=== PATIENT | male | born 1960 | race Caucasian/White ===

== ENCOUNTER 2016-12-01 11:10 | Inpatient (IN) | payer MEDICAID ==
--- NOTE | 2016-11-27 15:31 | GHP ---
[f rep st] HISTORY AND PHYSICAL DATE OF ADMISSION: 12/01/2016 History and physical for upcoming surgery on 12/01/2016, December 01, 2016. HISTORY OF PRESENT ILLNESS: The patient returns to our office to discuss his painful ventral mass, l ikely hernia. The patient has had a complicated course this year. In July, he underwent an ope n recurrent umbilical hernia repair and had a postop complication of peritonitis and underwent furthe r surgery. He was found to have an intraabdominal abscess and underwent further laparotomy. In September 2016, he underwent wound debridement and split-thickness graft placement. Since that time , the patient has had an enlarging painful mass over his incision, believed to be a ventral hernia/in cisional hernia. PAST MEDICAL HISTORY: Recent laparotomy, peritonitis, acute renal failure and acute respiratory fail ure during his recent hospital course stay, sepsis, history of COPD/emphysema, reflux, anxiety. PAST SURGICAL HISTORY: Recent laparotomy, skin graft placement, cholecystectomy, right lower lobe lo bectomy, knee surgery. ALLERGIES: Sulfa. SOCIAL HISTORY: Former smoker, lives with his brother, no alcohol use. REVIEW OF SYSTEMS: He had a negative 10-point review of systems. PHYSICAL EXAM: GENERAL: The patient is a pleasant male in no apparent distress. HEAD AND NECK: No rmocephalic, atraumatic. CHEST: CTA bilaterally. HEART: Regular rate. ABDOMEN: There is a midli ne incision with some mild erythema consistent with his graft site. There is a mildly tender palpabl e mass consistent with hernia, just left of midline. EXTREMITIES: No lower extremity edema. IMPRESSION: A 56-year-old male with ventral/incisional hernia, status post complicated hospital cour se stay, which included small bowel perforation, peritonitis, respiratory failure. RECOMMENDATION: After a long discussion of the risks, especially given the recent infections and hos pital course stay, the patient would like to proceed with scheduling surgery for ventral hernia repai r. Risks, including, infection, risk of open abdomen, poor healing, pain were all discussed with the patient in detail. The patient elects to proceed with scheduling for December 01, 2016. /[id number]/MODL
[~2016-12-01 11:10] MED LIST: BUPIVACAINE 0.5% 30 ML SDV ONE
[2016-12-01] MEDS ORDERED: ceFAZolin 2 GM/DEXTROSE 100 ML IV ONE (13:30)
[2016-12-01 14:15] LABS: % IMMATURE GRANULYOCYTES 0.4 % (0.0-1.1); ABSOLUTE IMMATURE GRANULOCYTES 0.03 10^3/uL (0.00-0.10); ADD DIFF? NO; ADD MORPH? NO; ADD SCAN? NO; ATYPICAL LYMPHOCYTE FLAG 10 (0-99); FRAGMENT RBC FLAG 0 (0-99); HEMATOCRIT 52.9 % (40.0-51.0); HEMOGLOBIN 18.2 g/dL (13.7-17.5); LEFT SHIFT FLG 0 (0-99); LIPEMIA HEMOLYSIS FLAG 90 (0-99); MEAN CELL HEMOGLOBIN 26.9 pg (27.9-34.1); MEAN CELL HEMOGLOBIN CONCENTR. 34.4 g/dL (32.4-36.7); MEAN CELL VOLUME 78.3 fL (81.5-99.8); PLATELET CLUMPS FLAG 10 (0-99); PLATELET COUNT 264 10^3/uL (150-400); RED BLOOD CELL COUNT 6.76 10^6/uL (4.40-6.38); RED CELL DISTRIBUTION WIDTH 15.9 % (11.5-15.2)
--- NOTE | 2016-12-01 14:21 | CPEKG ---
Heart Rate: 74 RR Interval: 811 P-R Interval: 180 QRSD Interval: 70 QT Interval: 384 QTC Interval: 426 P [place]: 10 QRS [place]: -33 T Wave [place]: 17 EKG Severity - OTHERWISE NORMAL ECG - EKG Impression: SINUS RHYTHM EKG Impression: LEFT AXIS DEVIATION Electronically Signed By: Norman Babb 01-Dec-2016 21:21:32
[2016-12-01] MEDS ORDERED: LIDOCAINE 1% 5 ML SDV ID PRN (14:28)
[2016-12-01] MEDS ORDERED: LR 1,000 ML IV ONE (14:28)
[2016-12-01 14:30] LABS: ANION GAP 15 mEq/L (8-16); CARBON DIOXIDE 20 mEq/l (22-31); CHLORIDE 106 mEq/L (97-110); CREATININE 0.8 mg/dL (0.7-1.3); GLOMERULAR FILTRATION RATE > 60; GLUCOSE 93 mg/dL (70-100); POTASSIUM 4.2 mEq/L (3.5-5.2); SODIUM 141 mEq/L (134-144)
[2016-12-01] MEDS ORDERED: MIDAZOLAM 2 MG/2 ML VIAL ONE (16:49)
[2016-12-01] MEDS ORDERED: LIDOCAINE 2% 100 MG/5 ML SYR IVP ONE (16:55)
[2016-12-01] MEDS ORDERED: fentaNYL 100 MCG/2 ML INJ ONE ×5 (16:55→20:12)
[2016-12-01] MEDS ORDERED: ONDANSETRON 4 MG/2 ML VIAL ONE ×2 (16:55→19:39)
[2016-12-01] MEDS ORDERED: DEXAMETHASONE 4 MG/ML VIAL ONE ×3 (16:55→19:40)
[2016-12-01] MEDS ORDERED: ROCURONIUM 50 MG/5 ML VIAL ONE ×3 (16:55→18:22)
[2016-12-01] MEDS ORDERED: PROPOFOL/EMULSION 500 MG/50 ML BOTTLE IV ONE (16:55)
[2016-12-01] MEDS ORDERED: THROMBIN (RECOMBINANT) 20,000 UNIT SPRAY TP ONE (17:30)
[2016-12-01] MEDS ORDERED: PROPOFOL 200 MG/20 ML VIAL ONE (18:38)
[2016-12-01] MEDS ORDERED: SUGAMMADEX SODIUM 500 MG/5 ML VIAL IVP ONE (19:03)
[2016-12-01] MEDS ORDERED: morphINE *ANESTHESIA ONLY* 10 MG/ML VIAL ONE (19:06)
--- NOTE | 2016-12-01 19:24 | POSTOPPROG ---
Post Op Note Date of Operation: 12/01/16 Surgeon: Qasim Robbins Inspector Line: OSVALDO Anesthesiologist: SHIRAZ Anesthesia: GET(General Endotracheal) Pre-op Diagnosis: RECURRENT VENTRAL HERNIA Post-op Diagnosis: SAME Indication: PAIN Procedure: OPEN RECURRENT VENTRAL HERNIA REPAIR WITH MESH Findings: 15CM VENTRAL HERNIA, RECURRENT Inf/Abcess present in the surg proc area at time of surgery?: No Depth: Organ Space EBL: 50-100 Complications: 0 Drains: Jonh Elias
[2016-12-01] MEDS ORDERED: ONDANSETRON 4 MG/2 ML VIAL IVP PRN (19:27)
[2016-12-01] MEDS ORDERED: NALOXONE HCL 0.4 MG/ML INJ IVP PRN (19:28)
[2016-12-01] MEDS ORDERED: NON-FORMULARY NEW DRUG (Ranitidine Hcl [Zantac] 150 MG) PO PRN (19:30)
[2016-12-01] MEDS ORDERED: PROMETHAZINE HCL 25 MG/ML VIAL ONE ×2 (19:40)
[2016-12-01] MEDS ORDERED: FAMOTIDINE 20 MG TAB PO PRN (19:41)
[2016-12-01] MEDS ORDERED: KETOROLAC 15 MG/1 ML SDV ONE (20:19)
[2016-12-01] MEDS ORDERED: HYDROmorphONE/DILAUDID 1 MG/ML SYR ONE (20:36)
[2016-12-01] MEDS ORDERED: LABETALOL HCL 5 MG/ML 20 ML MDV ONE (20:43)
[2016-12-01] MEDS: HYDROmorphONE/DILAUDID 6 MG/30 ML PCA IV PRN (21:35)
[2016-12-01] MEDS: D5W 1/2 NS W/ 20 KCl/L 1,000 ML IV SCH (21:44)
[2016-12-01] MEDS: NICOTINE POLACRILEX 2 MG GUM B SCH ×2 (21:46→21:47)
[2016-12-01] MEDS: LORazepam 1 MG TAB PO SCH (21:47)
[2016-12-01] MEDS: buPROPion 100 MG TAB PO SCH (21:51)
[2016-12-01] MEDS: METOPROLOL TARTRATE 25 MG TAB PO SCH (21:51)
[2016-12-01] MEDS: CYCLOBENZAPRINE 10 MG TAB PO PRN (23:41)
[2016-12-01] MEDS: KETOROLAC 15 MG/1 ML SDV IVP SCH (23:46)
[2016-12-01] MEDS: METOCLOPRAMIDE 10 MG/2 ML VIAL IVP SCH (23:47)
[2016-12-02] MEDS: NICOTINE POLACRILEX 2 MG GUM B SCH ×8 (02:40→22:02)
[2016-12-02] MEDS: D5W 1/2 NS W/ 20 KCl/L 1,000 ML IV SCH (04:52)
[2016-12-02] MEDS: DOCUSATE SODIUM 100 MG CAP PO PRN ×2 (04:54→20:03)
[2016-12-02] MEDS: METOPROLOL TARTRATE 25 MG TAB PO SCH ×2 (04:54→20:03)
[2016-12-02] MEDS: KETOROLAC 15 MG/1 ML SDV IVP SCH ×3 (04:59→17:52)
[2016-12-02] MEDS: METOCLOPRAMIDE 10 MG/2 ML VIAL IVP SCH ×3 (04:59→17:52)
[2016-12-02 05:50] LABS: % IMMATURE GRANULYOCYTES 0.6 % (0.0-1.1); ABSOLUTE IMMATURE GRANULOCYTES 0.07 10^3/uL (0.00-0.10); ADD DIFF? NO; ADD MORPH? NO; ADD SCAN? NO; ATYPICAL LYMPHOCYTE FLAG 0 (0-99); FRAGMENT RBC FLAG 0 (0-99); HEMOGLOBIN 16.3 g/dL (13.7-17.5); LEFT SHIFT FLG 10 (0-99); LIPEMIA HEMOLYSIS FLAG 90 (0-99); MEAN CELL HEMOGLOBIN 27.8 pg (27.9-34.1); MEAN CELL VOLUME 81.8 fL (81.5-99.8); MEAN PLATELET VOLUME 10.4 fL (8.7-11.7); PLATELET CLUMPS FLAG 0 (0-99); PLATELET COUNT 257 10^3/uL (150-400); RED BLOOD CELL COUNT 5.87 10^6/uL (4.40-6.38); RED CELL DISTRIBUTION WIDTH 14.6 % (11.5-15.2)
[2016-12-02 06:09] LABS: ANION GAP 11 mEq/L (8-16); CALCIUM 8.7 mg/dL (8.5-10.4); CARBON DIOXIDE 23 mEq/l (22-31); CHLORIDE 103 mEq/L (97-110); CREATININE 0.8 mg/dL (0.7-1.3); GLOMERULAR FILTRATION RATE > 60; GLUCOSE 122 mg/dL (70-100); POTASSIUM 5.3 mEq/L (3.5-5.2); SODIUM 137 mEq/L (134-144)
[2016-12-02] MEDS: FLUTICASONE IH SCH (08:29)
[2016-12-02] MEDS: ALBUTEROL IH SCH (08:29)
[2016-12-02] MEDS: MDI IH SCH (08:29)
[2016-12-02] MEDS: SALMETEROL IH SCH (08:29)
[2016-12-02] MEDS: HYDROmorphONE/DILAUDID 6 MG/30 ML PCA IV PRN ×2 (08:32→16:21)
[2016-12-02] MEDS: FUROSEMIDE 20 MG TAB PO SCH (08:35)
[2016-12-02] MEDS: CITALOPRAM 20 MG TAB PO SCH (08:35)
[2016-12-02] MEDS: PANTOPRAZOLE SODIUM 40 MG TAB PO SCH (08:35)
[2016-12-02] MEDS: buPROPion 100 MG TAB PO SCH ×2 (08:35→20:04)
[2016-12-02] MEDS ORDERED: NON-FORMULARY NEW DRUG (Omeprazole [Prilosec 20 Mg] 20 MG) PO SCH (09:00)
--- NOTE | 2016-12-02 09:33 | SOAPPROG ---
SOAP Progress Note Assessment/Plan: Assessment: SP VH REPAIR/ WOUND OK/ MODERATE DONNA OUT/ AFEBRILE Plan: ADVANCE DIET 12/02/16 09:32 Objective: Vital Signs Temp Pulse Resp BP Pulse Ox 36.8 C 89 12 117/84 H 95 12/02/16 07:37 12/02/16 08:34 12/02/16 08:34 12/02/16 07:37 12/02/16 08:34 Laboratory Results 12/02/16 04:31 12/02/16 04:31 12/01/16 12/02/16 12/03/16 05:59 05:59 05:59 Intake Total 1400 Output Total 725 Balance 675 ICD10 Worksheet Patient Problems: Problems Problem Status Diagnosed Cholelithiasis Acute
[2016-12-02] MEDS: OXYCODONE/APAP 5/325 TAB PO PRN ×3 (10:48→20:03)
[2016-12-02] MEDS: LORazepam 1 MG TAB PO SCH (20:04)
[2016-12-03] MEDS: METOCLOPRAMIDE 10 MG/2 ML VIAL IVP SCH ×5 (00:16→23:27)
[2016-12-03] MEDS: KETOROLAC 15 MG/1 ML SDV IVP SCH ×5 (00:16→23:27)
[2016-12-03] MEDS: NICOTINE POLACRILEX 2 MG GUM B SCH ×8 (00:16→22:17)
[2016-12-03] MEDS: OXYCODONE/APAP 5/325 TAB PO PRN ×5 (05:08→23:26)
[2016-12-03] MEDS: CYCLOBENZAPRINE 10 MG TAB PO PRN ×2 (08:08→20:32)
[2016-12-03] MEDS: DOCUSATE SODIUM 100 MG CAP PO PRN (08:08)
[2016-12-03] MEDS: METOPROLOL TARTRATE 25 MG TAB PO SCH ×2 (08:09→20:32)
[2016-12-03] MEDS: PANTOPRAZOLE SODIUM 40 MG TAB PO SCH (08:09)
[2016-12-03] MEDS: buPROPion 100 MG TAB PO SCH ×2 (08:14→20:32)
[2016-12-03] MEDS: FUROSEMIDE 20 MG TAB PO SCH (08:14)
[2016-12-03] MEDS: CITALOPRAM 20 MG TAB PO SCH (08:14)
[2016-12-03] MEDS: ALBUTEROL IH SCH (08:38)
[2016-12-03] MEDS: MDI IH SCH (08:38)
[2016-12-03] MEDS: FLUTICASONE IH SCH (08:40)
[2016-12-03] MEDS: SALMETEROL IH SCH (08:40)
--- NOTE | 2016-12-03 12:40 | SOAPPROG ---
SOAP Progress Note Assessment/Plan: Assessment: 56yo male s/p ventral hernia repair POD 2 tolerating clears, ambulating well, passing gas, now on percocet for pain control PE comfortable chest CTA B/L Abdomen midline stapled incision with no surrounding erythema, small amount of serosag leakage on inferior portion of wound Plan: advance diet home in 1-2 days, reviewed with pt ok to shower 12/03/16 12:38 Objective: Vital Signs Temp Pulse Resp BP Pulse Ox 36.6 C 73 18 113/71 93 12/03/16 12:00 12/03/16 12:00 12/03/16 12:00 12/03/16 12:00 12/03/16 12:00 Laboratory Results 12/02/16 04:31 12/02/16 04:31 12/02/16 12/03/16 12/04/16 05:59 05:59 05:59 Intake Total 1400 1293 1000 Output Total 725 510 755 Balance 672 780 245 ICD10 Worksheet Patient Problems: Problems Problem Status Diagnosed Cholelithiasis Acute
[2016-12-03] MEDS: LORazepam 1 MG TAB PO SCH (20:32)
[2016-12-04] MEDS: NICOTINE POLACRILEX 2 MG GUM B SCH ×8 (02:50→22:02)
[2016-12-04] MEDS: KETOROLAC 15 MG/1 ML SDV IVP SCH ×3 (05:17→18:00)
[2016-12-04] MEDS: OXYCODONE/APAP 5/325 TAB PO PRN ×4 (05:17→21:29)
[2016-12-04] MEDS: METOCLOPRAMIDE 10 MG/2 ML VIAL IVP SCH ×3 (05:18→19:14)
[2016-12-04] MEDS: FLUTICASONE IH SCH (09:51)
[2016-12-04] MEDS: SALMETEROL IH SCH (09:51)
[2016-12-04] MEDS: MDI IH SCH (09:51)
[2016-12-04] MEDS: ALBUTEROL IH SCH (09:51)
[2016-12-04] MEDS: CITALOPRAM 20 MG TAB PO SCH (09:55)
[2016-12-04] MEDS: buPROPion 100 MG TAB PO SCH ×2 (09:56→21:33)
[2016-12-04] MEDS: PANTOPRAZOLE SODIUM 40 MG TAB PO SCH (09:56)
[2016-12-04] MEDS: FUROSEMIDE 20 MG TAB PO SCH (09:56)
[2016-12-04] MEDS: METOPROLOL TARTRATE 25 MG TAB PO SCH ×2 (09:57→21:29)
[2016-12-04] MEDS: DOCUSATE SODIUM 100 MG CAP PO PRN (10:02)
--- NOTE | 2016-12-04 14:57 | SOAPPROG ---
SOAP Progress Note Assessment/Plan: Assessment: 56yo male s/p ventral hernia repair POD 2 tolerating clears, ambulating well, passing gas, now on percocet for pain control PE comfortable chest CTA B/L Abdomen midline stapled incision with no surrounding erythema, small amount of serosag leakage on inferior portion of wound Plan: advance diet home in 1-2 days, reviewed with pt ok to shower 12/03/16 12:38 12/04/16 14:55 tolerating regular diet, some ab cramping/pain, ambulating PE comfortable Abdomen [address], midline stapled incision dry, abdomen soft nontender to palpation Plan gave scripts to patient for likely discharge Wednesday. spent greater than 20 min reviewing wound care instructions, follow-up will type out instructions for d/c Objective: Vital Signs Temp Pulse Resp BP Pulse Ox 36.4 C 76 18 136/84 H 92 12/04/16 07:55 12/04/16 07:55 12/04/16 07:55 12/04/16 07:55 12/04/16 07:55 Laboratory Results 12/02/16 04:31 12/02/16 04:31 12/03/16 12/04/16 12/05/16 05:59 05:59 05:59 Intake Total 1293 2300 300 Output Total 510 1845 258 Balance 783 455 42 ICD10 Worksheet Patient Problems: Problems Problem Status Diagnosed Cholelithiasis Acute
[2016-12-04] MEDS: LORazepam 1 MG TAB PO SCH (21:29)
[2016-12-05] MEDS: KETOROLAC 15 MG/1 ML SDV IVP SCH ×5 (00:26→23:56)
[2016-12-05] MEDS: METOCLOPRAMIDE 10 MG/2 ML VIAL IVP SCH ×5 (00:26→23:56)
[2016-12-05] MEDS: NICOTINE POLACRILEX 2 MG GUM B SCH ×8 (02:03→22:51)
[2016-12-05] MEDS: OXYCODONE/APAP 5/325 TAB PO PRN ×4 (05:09→21:32)
--- NOTE | 2016-12-05 05:58 | SOAPPROG ---
SOAP Progress Note Assessment/Plan: Assessment: 56yo male s/p ventral hernia repair POD 2 tolerating clears, ambulating well, passing gas, now on percocet for pain control PE comfortable chest CTA B/L Abdomen midline stapled incision with no surrounding erythema, small amount of serosag leakage on inferior portion of wound Plan: advance diet home in 1-2 days, reviewed with pt ok to shower 12/03/16 12:38 12/04/16 14:55 tolerating regular diet, some ab cramping/pain, ambulating PE comfortable Abdomen [address], midline stapled incision dry, abdomen soft nontender to palpation Plan gave scripts to patient for likely discharge Wednesday. spent greater than 20 min reviewing wound care instructions, follow-up will type out instructions for d/c 12/05/16 05:55 draft note, will see pt around 8am today. Tolerating regular diet, ambulating. Patient refused drain removal yesterday. PE comfortable, no signs of distress Chest CTA B/L abdomen stapled midline incision dry, no erythema, soft, [address] Plan D/C likely Wednesday ultrasound to evaluate upper ab mass, doubt hernia, pt concerned. Patient has all prescriptions. discussed importance of having drains removed and prevention of infection or other complications of having drains left in. will remove #2 today. wean oxygen Placed instructions in D/C summary. 12/05/16 09:08 Objective: Vital Signs Temp Pulse Resp BP Pulse Ox 36.6 C 80 14 153/93 H 94 12/04/16 22:39 12/04/16 22:39 12/04/16 22:39 12/04/16 22:39 12/04/16 22:39 Laboratory Results 12/02/16 04:31 12/02/16 04:31 12/03/16 12/04/16 12/05/16 05:59 05:59 05:59 Intake Total 1293 2300 1500 Output Total 510 1845 268 Balance 559 193 0449 ICD10 Worksheet Patient Problems: Problems Problem Status Diagnosed Cholelithiasis Acute
[2016-12-05 08:59] LABS: % IMMATURE GRANULYOCYTES 0.2 % (0.0-1.1); ABSOLUTE IMMATURE GRANULOCYTES 0.01 10^3/uL (0.00-0.10); ADD DIFF? NO; ADD MORPH? NO; ADD SCAN? NO; ATYPICAL LYMPHOCYTE FLAG 20 (0-99); FRAGMENT RBC FLAG 0 (0-99); HEMATOCRIT 39.5 % (40.0-51.0); HEMOGLOBIN 13.4 g/dL (13.7-17.5); LEFT SHIFT FLG 0 (0-99); LIPEMIA HEMOLYSIS FLAG 90 (0-99); MEAN CELL HEMOGLOBIN 27.5 pg (27.9-34.1); MEAN CELL HEMOGLOBIN CONCENTR. 33.9 g/dL (32.4-36.7); MEAN CELL VOLUME 81.1 fL (81.5-99.8); MEAN PLATELET VOLUME 10.2 fL (8.7-11.7); PLATELET CLUMPS FLAG 0 (0-99); PLATELET COUNT 220 10^3/uL (150-400); RED BLOOD CELL COUNT 4.87 10^6/uL (4.40-6.38); RED CELL DISTRIBUTION WIDTH 14.8 % (11.5-15.2)
--- NOTE | 2016-12-05 09:13 | SOAPPROG ---
SOAP Progress Note Assessment/Plan: Assessment: 56yo male s/p ventral hernia repair POD 2 tolerating clears, ambulating well, passing gas, now on percocet for pain control PE comfortable chest CTA B/L Abdomen midline stapled incision with no surrounding erythema, small amount of serosag leakage on inferior portion of wound Plan: advance diet home in 1-2 days, reviewed with pt ok to shower 12/03/16 12:38 12/04/16 14:55 tolerating regular diet, some ab cramping/pain, ambulating PE comfortable Abdomen [address], midline stapled incision dry, abdomen soft nontender to palpation Plan gave scripts to patient for likely discharge Wednesday. spent greater than 20 min reviewing wound care instructions, follow-up will type out instructions for d/c 12/05/16 05:55 draft note, will see pt around 8am today. Tolerating regular diet, ambulating. Patient refused drain removal yesterday. PE comfortable, no signs of distress Chest CTA B/L abdomen stapled midline incision dry, no erythema, soft, [address] Plan D/C likely Wednesday ultrasound to evaluate upper ab mass, doubt hernia, pt concerned. Patient has all prescriptions. discussed importance of having drains removed and prevention of infection or other complications of having drains left in. will remove #2 today. wean oxygen Placed instructions in D/C summary. 12/05/16 09:08 12/05/16 09:12 WBC normal, metabolic panel pending Objective: Vital Signs Temp Pulse Resp BP Pulse Ox 37.0 C 75 18 142/82 H 90 L 12/05/16 08:00 12/05/16 08:00 12/05/16 08:00 12/05/16 08:00 12/05/16 08:00 Laboratory Results 12/05/16 08:36 12/04/16 12/05/16 12/06/16 05:59 05:59 05:59 Intake Total 2300 1500 Output Total 1845 298 Balance 455 1202 ICD10 Worksheet Patient Problems: Problems Problem Status Diagnosed Cholelithiasis Acute
[2016-12-05 09:26] LABS: ANION GAP 9 mEq/L (8-16); CALCIUM 8.9 mg/dL (8.5-10.4); CARBON DIOXIDE 29 mEq/l (22-31); CHLORIDE 103 mEq/L (97-110); CREATININE 0.8 mg/dL (0.7-1.3); GLOMERULAR FILTRATION RATE > 60; GLUCOSE 86 mg/dL (70-100); POTASSIUM 4.2 mEq/L (3.5-5.2); SODIUM 141 mEq/L (134-144)
[2016-12-05] MEDS: buPROPion 100 MG TAB PO SCH ×2 (09:44→21:33)
[2016-12-05] MEDS: CITALOPRAM 20 MG TAB PO SCH (09:44)
[2016-12-05] MEDS: FUROSEMIDE 20 MG TAB PO SCH (09:44)
[2016-12-05] MEDS: PANTOPRAZOLE SODIUM 40 MG TAB PO SCH (09:45)
[2016-12-05] MEDS: METOPROLOL TARTRATE 25 MG TAB PO SCH ×2 (09:45→21:32)
[2016-12-05] MEDS: SALMETEROL IH SCH (10:00)
[2016-12-05] MEDS: FLUTICASONE IH SCH (10:00)
[2016-12-05] MEDS: ALBUTEROL IH SCH (10:00)
[2016-12-05] MEDS: MDI IH SCH (10:00)
--- NOTE | 2016-12-05 11:30 | US ---
Abdominal Wall Ultrasound dated December 05, 2016 Indication: 56-year-old man with history of multiple hernia repairs. Mass superior to stapled incisio n. Evaluate for hernia and fluid collection. Technique: The abdominal wall was evaluated with a curvilinear 5 transducer. Comparison: CT abdomen and pelvis dated August 20, 2016. Findings: The palpable mass corresponds to echogenic subcutaneous fat in the epigastric region. The a pex of 2 surgical drains resides in the echogenic fat. No fluid collection surrounds the drain. No residual or recurrent hernia. Three small fluid loculations are present along the left margin of the incision inferior to the area of concern. The smallest locule, labeled #3., along the superior margin of the incision measures 0.7 x 2.8 x 3.3 cm (with a total volume of 3. 4 mL). The second small locule slightly more inferiorly labeled #1., measures 1.7 x 3.7 x 4.4 cm (tot al volume of 14 mL). A third vertically-oriented, discoid fluid collection measures 12 cm in length x 2 cm AP x 9 cm, medial to lateral (with a total volume 118 mL). Impression: 1. No recurrent abdominal wall hernia. 2. Palpable mass corresponds to echogenic edematous subcutaneous fat at the apex of the surgical inci nando adjacent to indwelling drains. 3. Three small fluid locules present left of the incision and appear to be inferior to the area of in terest. Comment: The case was discussed with Dr. Ivory Haile shortly after study completion on December 05 7.
[2016-12-05 15:33] VITALS: TEMP 98.2
[2016-12-05] MEDS: LORazepam 1 MG TAB PO SCH (21:32)
[2016-12-06] MEDS: NICOTINE POLACRILEX 2 MG GUM B SCH ×3 (02:40→08:51)
[2016-12-06] MEDS: OXYCODONE/APAP 5/325 TAB PO PRN ×2 (05:16→10:49)
[2016-12-06] MEDS: METOCLOPRAMIDE 10 MG/2 ML VIAL IVP SCH (05:17)
[2016-12-06] MEDS: KETOROLAC 15 MG/1 ML SDV IVP SCH (05:17)
--- NOTE | 2016-12-06 05:49 | SOAPPROG ---
SOAP Progress Note Assessment/Plan: Assessment: 56yo male s/p ventral hernia repair POD 2 tolerating clears, ambulating well, passing gas, now on percocet for pain control PE comfortable chest CTA B/L Abdomen midline stapled incision with no surrounding erythema, small amount of serosag leakage on inferior portion of wound Plan: advance diet home in 1-2 days, reviewed with pt ok to shower 12/03/16 12:38 12/04/16 14:55 tolerating regular diet, some ab cramping/pain, ambulating PE comfortable Abdomen [address], midline stapled incision dry, abdomen soft nontender to palpation Plan gave scripts to patient for likely discharge Wednesday. spent greater than 20 min reviewing wound care instructions, follow-up will type out instructions for d/c 12/05/16 05:55 draft note, will see pt around 8am today. Tolerating regular diet, ambulating. Patient refused drain removal yesterday. PE comfortable, no signs of distress Chest CTA B/L abdomen stapled midline incision dry, no erythema, soft, [address] Plan D/C likely Wednesday ultrasound to evaluate upper ab mass, doubt hernia, pt concerned. Patient has all prescriptions. discussed importance of having drains removed and prevention of infection or other complications of having drains left in. will remove #2 today. wean oxygen Placed instructions in D/C summary. 12/05/16 09:08 12/05/16 09:12 WBC normal, metabolic panel pending 12/06/16 05:47 Tolerating regular diet, one DONNA drain removed yesterday. ambulating, labs normal including metabolic panel yesterday. PE awake alert comfortable stapled midline incision without surrounding erythema. abdomen soft, DONNA drain with serosag output. Plan d/c home today, DONNA removal prior to d/c 12/06/16 05:49 12/06/16 09:52 Objective: Vital Signs Temp Pulse Resp BP Pulse Ox 36.8 C 70 14 144/93 H 93 12/05/16 23:49 12/05/16 23:49 12/05/16 23:49 12/05/16 23:49 12/05/16 23:49 Laboratory Results 12/05/16 08:36 12/05/16 08:36 12/04/16 12/05/16 12/06/16 05:59 05:59 05:59 Intake Total 2300 1500 600 Output Total 1845 298 15 Balance 455 1202 585 ICD10 Worksheet Patient Problems: Problems Problem Status Diagnosed Cholelithiasis Acute
[2016-12-06 08:13] VITALS: BP 138/85; PULSE 79; RESP 16; O2SAT 90
[2016-12-06] MEDS: METOPROLOL TARTRATE 25 MG TAB PO SCH (08:50)
[2016-12-06] MEDS: FUROSEMIDE 20 MG TAB PO SCH (08:50)
[2016-12-06] MEDS: CITALOPRAM 20 MG TAB PO SCH (08:50)
[2016-12-06] MEDS: buPROPion 100 MG TAB PO SCH (08:50)
[2016-12-06] MEDS: PANTOPRAZOLE SODIUM 40 MG TAB PO SCH (08:51)
[2016-12-06] MEDS: ALBUTEROL IH SCH (08:56)
[2016-12-06] MEDS: SALMETEROL IH SCH (08:56)
[2016-12-06] MEDS: FLUTICASONE IH SCH (08:56)
[2016-12-06] MEDS: MDI IH SCH (08:56)
--- NOTE | 2016-12-06 10:47 | GDS ---
[f rep st] DISCHARGE SUMMARY REASON FOR ADMISSION: Surgery for ventral hernia. OTHER PERTINENT DIAGNOSES: Recurrent hernias, history of peritonitis, laparotomy in 2016, history of chronic obstructive pulmonary disease, emphysema, anxiety. HOSPITAL COURSE: Patient is a 56-year-old male, who underwent ventral hernia repair with Dr. Rosendo hooks 12/01/2016, was found have a large ventral hernia that was repaired with mesh. His hospital course was remarkable for a slow return to bowel function as well as slow return to control of pain. Janie taveras is currently taking Percocet, tramadol, and Flexeril for pain. FOLLOWUP: The patient has a stapled midline incision and fe should be removed approximately 2 w eeks from surgery. Patient had surgery on 12/01/2016, thus 12/16/2016, the patient should come to ou r office to have his fe removed and have a wound check. It was explained to the patient that we do not have office hours on 12/15/2016, thus appointment on 12/16/2016 will be fine. Patient should avoid heavy lifting for 6 weeks. It is okay for him to shower over the fe. Prior to discharge both his Jonh-Elias drains have been removed. The patient was discharged with tramadol #60, Percocet #45, Flexeril #30. I encouraged the patient t o take tramadol for pain. /[id number]/MODL
== END 2016-12-06 11:41 | disposition home or self-care (01) | DRG 355 ==
LOC: F3N 13:12 → F3E 21:28 → OBSVTOIN 12-02 09:32
PROVIDERS: ADMIT Surgery; ATTEND Surgery
PROC: 0WUF0JZ Supplement Abdominal Wall with Synthetic Substitute, Open Approach (ICD-10-PCS; principal; 2016-12-01 14:30)
DX: K43.2 Incisional hernia without obstruction or gangrene (principal); J43.9 Emphysema, unspecified; Z87.891 Personal history of nicotine dependence
CPT/HCPCS: G0378; J0690; J1100; J1170; J1885; J2001; J2250; J2405; J2550; J2704; J2765; J3010; J3490; Q4130

== ENCOUNTER 2018-05-02 15:06 | Emergency (ER) | payer MEDICAID, OTHER ==
--- NOTE | 2018-05-02 15:26 | EDPHY ---
H & P Stated Complaint: abd pain Time Seen by Provider: 05/02/18 15:25 HPI/ROS: CHIEF COMPLAINT: Cough, abdominal pain HISTORY OF PRESENT ILLNESS: The patient presents to the emergency department with complaints of cough and abdominal pain. The patient has a complicated past medical history. He reports he has had 6 abdominal surgeries in the past 2 years. He has had a gallbladder removal, peritonitis, ventral hernia repair and revision. The patient has a history of diverticulitis and presents today complaining of left lower abdominal pain which is reminiscent of his prior diverticulitis. The patient also reports a several day history of a productive cough. The patient does have a history of lung resection secondary to an infectious process. The patient currently is taking only metoprolol. REVIEW OF SYSTEMS: A comprehensive 10 point review of systems is otherwise negative aside from elements mentioned in the history of present illness. Source: Patient Exam Limitations: No limitations - Personal History Current Tetanus/Diphtheria Vaccine: Yes Current Tetanus Diphtheria and Acellular Pertussis (TDAP): Yes Tetanus Vaccine Date: 2011 - Medical/Surgical History Hx Asthma: No Hx Chronic Respiratory Disease: Yes Hx Diabetes: No Hx Cardiac Disease: No Hx Renal Disease: Yes Hx Cirrhosis: No Hx Alcoholism: No Hx HIV/AIDS: No Hx Splenectomy or Spleen Trauma: No Other PMH: COPD, emphysema, Reflux, kidney stone, gall stones, RUL/RLL partial lung removal (inflamed lymph node), R knee surgery, L ankle surgery, hernias x 9 with surgical repair, L wrist surgery, intestinal blockage as a baby, diverticulitis, pre-diabetic - Social History Smoking Status: Former smoker - Physical Exam Exam: General Appearance: Alert, no distress Eyes: Pupils equal and round no pallor or injection ENT, Mouth: Mucous membranes moist Respiratory: There are no retractions, lungs are clear to auscultation Cardiovascular: Regular rate and rhythm Gastrointestinal: Slightly distended, tenderness to palpation greatest in the left lower quadrant, multiple surgical incisions Neurological: 5/5 strength all 4 extremities Skin: Warm and dry, no rashes Musculoskeletal: Neck is supple nontender Extremities: symmetrical, full range of motion Constitutional: Initial Vital Signs Temperature (C) 36.6 C 05/02/18 15:18 Heart Rate 101 H 05/02/18 15:18 Respiratory Rate 16 05/02/18 15:18 Blood Pressure 173/122 H 05/02/18 15:18 O2 Sat (%) 94 05/02/18 15:18 O2 Delivery Mode Room Air Allergies/Adverse Reactions: peach Allergy (Verified 05/02/18 15:14) Swelling/neck,face,throat Sulfa (Sulfonamide Antibiotics) Allergy (Verified 05/02/18 15:14) Mak Eliud Syndrome tree nut Allergy (Verified 05/02/18 15:14) Rash Home Medications: Medication Instructions Recorded Albuterol Hfa Anes Only [Proair 1 - 2 puffs IH DAILY 11/26/16 Hfa Icu (*)] Ascorbic Acid [Vitamin C 500 mg 500 mg PO DAILY 11/26/16 (*)] Metoprolol Tartrate [Lopressor 25 25 mg PO BID 11/26/16 mg (*)] Multivitamins [Multivitamin (*)] 1 each PO DAILY 11/26/16 Nicotine Polacrilex [Nicorette gum 4 mg BC Q3H 11/26/16 (*)] Ranitidine HCl [Zantac] 150 mg PO DAILY PRN 11/26/16 Claritin 05/02/18 Medical Decision Making - Diagnostics Imaging Results: Imaging Impressions Chest X-Ray 05/02/18 15:36 Impression: 1, No evidence for pneumonia or recurrent lung cancer. 2. Lingular nodule little if at all changed x22 months, considering differences in technique. This can be followed on subsequent PA and lateral chest radiography, in perhaps [address] 05/02/18 16:06 Impression: 1. Chronic diverticulosis of the sigmoid colon without evidence of acute diverticulitis. 2. Very thin ventral abdominal wall complex fluid collection, which could be sterile or infected. This collection is inseparable from nondilated, nonthickened loops of small bowel. Findings were communicated by telephone with Dr. Fahad Green at 05/02/2018 16:46 ED Course/Re-evaluation: The patient presents to the ED for evaluation of left lower quadrant pain and a cough. The patient has a complicated past surgical history. He is currently under the care of a surgeon at the [facility]. Patient was noted to have tenderness to palpation in the left lower quadrant reports a prior history of diverticulitis. A CT scan of the abdomen pelvis was obtained which demonstrates no evidence of perforation obstruction he does have a thin 9 mm fluid collection noted below his abdominal wall. The patient has a chest x-ray which demonstrates no evidence of an obvious pneumonia. The patient is afebrile and has no significant leukocytosis. The remainder of his laboratory studies are within normal limits. The patient does not have tenderness in the area of the fluid collection I feel this is likely an incidental finding. The patient is currently on antibiotics prescribed by his primary care provider for cough. At this point time I do feel the patient can be discharged home with a prescription for an albuterol inhaler and pain medications. The patient has been given customary aftercare instructions and return precautions. Differential Diagnosis: Differential diagnosis considered includes diverticulitis, perforation, abscess , pancreatitis, pneumonia, bronchitis - Data Points Laboratory Results: Laboratory Results 05/02/18 15:59 05/02/18 15:59 05/02/18 05/02/18 05/02/18 16:05 15:59 15:59 WBC 8.18 10^3/uL 10^3/uL (3.80-9.50) RBC 6.23 10^6/uL 10^6/uL (4.40-6.38) Hgb 17.7 g/dL H g/dL (13.7-17.5) POC Hgb 17.7 gm/dL H gm/dL (13.7-17.5) Hct 51.8 % H % (40.0-51.0) POC Hct 52 % H % (40-51) MCV 83.1 fL fL (81.5-99.8) MCH 28.4 pg pg (27.9-34.1) MCHC 34.2 g/dL g/dL (32.4-36.7) RDW 12.7 % % (11.5-15.2) Plt Count 238 10^3/uL 10^3/uL (150-400) MPV 10.5 fL fL (8.7-11.7) Neut % (Auto) 74.7 % H % (39.3-74.2) Lymph % (Auto) 13.4 % L % (15.0-45.0) [place] % (Auto) 9.8 % % (4.5-13.0) Eos % (Auto) 1.0 % % (0.6-7.6) Baso % (Auto) 0.6 % % (0.3-1.7) Nucleat RBC Rel Count 0.0 % % (0.0-0.2) Absolute Neuts (auto) 6.11 10^3/uL 10^3/uL (1.70-6.50) Absolute Lymphs (auto) 1.10 10^3/uL 10^3/uL (1.00-3.00) Absolute Monos (auto) 0.80 10^3/uL 10^3/uL (0.30-0.80) Absolute Eos (auto) 0.08 10^3/uL 10^3/uL (0.03-0.40) Absolute Basos (auto) 0.05 10^3/uL 10^3/uL (0.02-0.10) Absolute Nucleated RBC 0.00 10^3/uL 10^3/uL (0-0.01) Immature Gran % 0.5 % % (0.0-1.1) Immature Gran # 0.04 10^3/uL 10^3/uL (0.00-0.10) POC Sodium 142 mEq/L mEq/L (135-145) Sodium 143 mEq/L mEq/L (135-145) POC Potassium 3.9 mEq/L mEq/L (3.3-5.0) Potassium 4.2 mEq/L mEq/L (3.3-5.0) POC Chloride 106 mEq/L mEq/L (97-110) Chloride 107 mEq/L mEq/L (97-110) Carbon Dioxide 23 mEq/l mEq/l (22-31) Anion Gap 13 mEq/L mEq/L (8-16) POC BUN 19 mg/dL mg/dL (7-23) BUN 19 mg/dL mg/dL (7-23) Creatinine 0.8 mg/dL mg/dL (0.7-1.3) POC Creatinine 0.8 mg/dL mg/dL (0.7-1.3) Estimated GFR > 60 Glucose 102 mg/dL H mg/dL (70-100) POC Glucose 109 mg/dL H mg/dL (70-100) Calcium 9.9 mg/dL mg/dL (8.5-10.4) Total Bilirubin 0.8 mg/dL mg/dL (0.1-1.4) Conjugated Bilirubin 0.3 mg/dL mg/dL (0.0-0.5) Unconjugated Bilirubin 0.5 mg/dL mg/dL (0.0-1.1) AST 37 IU/L IU/L (17-59) ALT 68 IU/L IU/L (21-72) Alkaline Phosphatase 93 IU/L IU/L (38-126) Total Protein 7.7 g/dL g/dL (6.3-8.2) Albumin 4.5 g/dL g/dL (3.5-5.0) Lipase 165 IU/L IU/L (23-300) Point of Care Test Results: Chemistry 05/02/18 16:05 POC Sodium 142 mEq/L mEq/L (135-145) POC Potassium 3.9 mEq/L mEq/L (3.3-5.0) POC Chloride 106 mEq/L mEq/L (97-110) POC BUN 19 mg/dL mg/dL (7-23) POC Creatinine 0.8 mg/dL mg/dL (0.7-1.3) POC Glucose 109 mg/dL H mg/dL (70-100) ISTAT H&H 05/02/18 16:05 POC Hgb 17.7 gm/dL H gm/dL (13.7-17.5) POC Hct 52 % H % (40-51) Departure - Departure Disposition: Home, Routine, Self-Care Clinical Impression: Abdominal pain, Bronchitis Condition: Good Instructions: Acute Bronchitis (ED) Additional Instructions: 1. Use inhaler in addition to the antibiotics prescribed by your primary care provider. 2. Percocet as needed for pain. 3. Please follow up with your surgeon as scheduled. 4. Return to the ED for markedly worsening pain, fever or vomiting. Referrals: COLETTE HUNTER [Primary Care Provider] - As per Instructions
[2018-05-02 16:08] LABS: PLATELET COUNT 238 10^3/uL (150-400)
[2018-05-02] MEDS ORDERED: IOPAMIDOL (ISOVUE-300) 100 ML BTL ONE (16:10)
[2018-05-02 17:47] VITALS: BP 114/87
== END 2018-05-02 17:46 | disposition home or self-care (01) ==
DX: J40 Bronchitis, not specified as acute or chronic (principal); R10.32 Left lower quadrant pain; J44.9 Chronic obstructive pulmonary disease, unspecified; Z87.891 Personal history of nicotine dependence
CPT/HCPCS: 82435-PO; 82565-PO; 82947-PO; 84132-PO; 84295-PO; 84520-PO; 85014-PO; Q9967